=== PATIENT | male | born 1975 | race Caucasian/White ===

== ENCOUNTER 2022-02-24 07:56 | Emergency (ER) | payer OTHER ==
[2022-02-24 08:13] VITALS: BP 121/82; PULSE 90; TEMP 98; BMI 27.2
== END 2022-02-24 09:23 | disposition home or self-care (01) ==
LOC: JER 07:56 → JERFT 07:56
DX: M25.572 Pain in left ankle and joints of left foot (principal)
CPT/HCPCS: 73610-TC-LT-FY; 73630-TC-LT; 99283-25